=== PATIENT | male | born 1990 | race Caucasian/White ===

== ENCOUNTER 2018-07-30 11:12 | Inpatient (IN) | payer OTHER ==
[~2018-07-30] VITALS: Ht 182.9 cm; Wt 87.1 kg
--- NOTE | 2018-07-30 11:22 | NUR ---
PT AMBULATES TO BED 11
[2018-07-30 11:26] VITALS: BP 129/70
--- NOTE | 2018-07-30 11:30 | NUR ---
PATIENT PRESENTS TO ED WITH C/O HEADACHE AND FAST HEART RATE . PT STATES HE HAS HAD THE HEADACHE FOR 2 DAYS BUT NOTICED TODAY THAT HIS HEART RATE IS FASTER THAN USUAL. PATIENT REPORTS THAT HE HAD A GASTRIC SLEEVE SURGERY A YEAR AGO. PER PATIENT HE HAD A BM TODAY AND IT WAS DARK. PT WAS ADVISED TO COME TO ER TO HAVE HIS BLOOD WORK DONE. DENIES N/V/D; SKIN IS PINK/WARM/DRY; AAOX4 WITH EVEN AND STEADY GAIT; LUNGS CLEAR BL; HR EVEN AND REGULAR; PT DENIES ANY FEVER, CP, SOB, OR COUGH AT THIS TIME; PATIENT STATES PAIN OF 5/10 AT THIS TIME; VSS; PATIENT POSITIONED FOR COMFORT; HOB ELEVATED; BEDRAILS UP X2; BED DOWN. ER MD MADE AWARE OF PT STATUS.
[2018-07-30] MEDS ORDERED: KETOROLAC 30 MG/ML VIAL IVP ONE (11:35)
[2018-07-30] MEDS ORDERED: NACL 0.9% 1,000 ML IV ONE ×2 (11:35→12:10)
--- NOTE | 2018-07-30 11:48 | NUR ---
XRAY AT BEDSIDE
[2018-07-30 12:01] LABS: BASOPHILS % (AUTO) 0.6 % (0.0-2.0); EOSINOPHILS # (AUTO) 0.1 K/uL (0-0.4); EOSINOPHILS % (AUTO) 1.8 % (0.0-4.0); HEMOGLOBIN 7.8 g/dL (12.0-18.0); LYMPHOCYTES # (AUTO) 1.5 K/uL (2.0-11.5); LYMPHOCYTES % (AUTO) 26.8 % (20.5-51.1); MEAN CORPUSCULAR HEMOGLOBIN 30 pg (27-31); MEAN CORPUSCULAR HGB CONC 34 g/dL (33-37); MEAN CORPUSCULAR VOLUME 87.8 fL (80-94); MONOCYTES # (AUTO) 0.4 K/uL (0.8-1.0); NEUTROPHILS # (AUTO) 3.6 K/uL (1.8-7.7); NEUTROPHILS % (AUTO) 63.8 % (42.2-75.2); PLATELET COUNT (AUTO) 178 K/uL (140-450); RED BLOOD CELL COUNT(AUTO) 2.62 MIL/uL (4.20-6.10); RED CELL DISTRIBUTION WIDTH 13.9 % (11.6-13.7); WHITE BLOOD COUNT (AUTO) 5.7 K/uL (4.8-10.8)
[2018-07-30 12:15] LABS: ANION GAP 14.2 (8-16); CARBON DIOXIDE 26.4 mmol/L (21-32); CREATININE 0.9 mg/dL (0.7-1.3); POTASSIUM 3.6 mmol/L (3.5-5.1)
[2018-07-30 12:20] LABS: ALBUMIN 3.2 g/dL (3.4-5.0); PROTHROMBIN TIME 10.2 secs (10.8-13.4); TOTAL BILIRUBIN 0.3 mg/dL (0.0-1.0)
[2018-07-30] MEDS: DEXT 5% /NACL 0.9% 1,000 ML IV SCH (13:27)
[2018-07-30] MEDS ORDERED: ACETAMINOPHEN 325 MG TAB PO PRN (13:30)
[2018-07-30] MEDS ORDERED: ONDANSETRON 4 MG/2 ML VIAL IVP PRN (13:30)
--- NOTE | 2018-07-30 14:16 | NUR ---
PT TAKEN TO [facility] FLOOR BY SURYA SANTOS VIA WHEELCHAIR
--- NOTE | 2018-07-30 14:20 | NUR ---
Patient will be admitted to care of DR MATOS . Admited to [facility]. Will go to room 111A. Belongings list completed. Report to SURYA CANTU.
[2018-07-30 14:30] VITALS: BP 97/52
--- NOTE | 2018-07-30 15:00 | NUR ---
RECEIVED PT FROM ED NURSE TOM. PT IS ALERT AND AWAKE, NO S/S OF ACUTE DISTRESS OR SOB. PT C/O A MIGRAINE HEADACHE. PT NOTED TO BE PALE. NO SKIN ISSUES. PT ON ROOM AIR. VITAL SIGNS ARE: BP 97/52, TEMP 98.8, HR 73, O2 100, RESP 16. IV SITE NOTED ON THE L AC, 20 GAUGE. PATENT AND INTACT. CALL LIGHT PLACED WITHIN REACH. IS AT BEDSIDE. WILL CONTINUE TO MONITOR.
[2018-07-30 15:12] LABS: MAGNESIUM 1.9 mg/dL (1.8-2.4); PHOSPHORUS 3.2 mg/dL (2.5-4.9)
[2018-07-30 15:13] LABS: CHOL/HDL RATIO 2.6 (1-4.5)
[2018-07-30 15:35] LABS: FREE T4 (FREE THYROXINE) 1.09 ng/dL (0.76-1.46)
[2018-07-30 16:00] VITALS: BP 94/55
--- NOTE | 2018-07-30 16:15 | NUR ---
STOOL SAMPLE COLLECTED FOR HEMOCCULT TEST, TAKEN TO LAB.
[2018-07-30 16:52] LABS: THYROID STIMULATING HORMONE 0.71 uIU/mL (0.34-3.74)
--- NOTE | 2018-07-30 17:34 | NUR ---
PT AWAKE AND ALERT, VISITING WITH FAMILY. NO S/S OF DISTRESS NOTED AT THIS TIME. CALL LIGHT WITHIN REACH. WILL CONTINUE TO MONITOR.
[2018-07-30] MEDS ORDERED: APAP/BUTAL/CAFF 325/50/40 MG 1 TAB PO PRN (17:55)
--- NOTE | 2018-07-30 18:20 | NUR ---
MD NOTIFIED OF PT'S SEVERE MIGRAINE HEADACHE, AND THAT TYLENOL DID NOT HELP. MD ORDERED FIORICET FOR PT.
[2018-07-30 19:11] LABS: BASOPHILS % (AUTO) 0.5 % (0.0-2.0); EOSINOPHILS # (AUTO) 0.2 K/uL (0-0.4); EOSINOPHILS % (AUTO) 2.7 % (0.0-4.0); LYMPHOCYTES # (AUTO) 2.2 K/uL (2.0-11.5); MEAN CORPUSCULAR HEMOGLOBIN 30 pg (27-31); MEAN CORPUSCULAR HGB CONC 34 g/dL (33-37); MEAN CORPUSCULAR VOLUME 88.5 fL (80-94); MONOCYTES # (AUTO) 0.3 K/uL (0.8-1.0); MONOCYTES % (AUTO) 5.6 % (1.7-9.3); NEUTROPHILS # (AUTO) 3.1 K/uL (1.8-7.7); NEUTROPHILS % (AUTO) 53.2 % (42.2-75.2); PLATELET COUNT (AUTO) 140 K/uL (140-450); RED BLOOD CELL COUNT(AUTO) 2.14 MIL/uL (4.20-6.10); RED CELL DISTRIBUTION WIDTH 14.5 % (11.6-13.7); WHITE BLOOD COUNT (AUTO) 5.7 K/uL (4.8-10.8)
[2018-07-30 19:18] LABS: HEMOGLOBIN 6.3 g/dL (12.0-18.0)
--- NOTE | 2018-07-30 19:25 | NUR ---
RECEIVED REPORT AT BEDSIDE FROM CAREN LONDON DAYSHIFT NURSE FOR CONTINUITY OF CARE, PT IN STABLE CONDITION. DURING REPORT LAB CALLED TO REPORT A CRITICAL H&H. HB IS 6.3 AND HEMATOCRIT IS 19. RESIDENT DR. BHATTI MADE AWARE, AND ORDERED A BLOOD TRANSFUSION.
[2018-07-30] MEDS ORDERED: FUROSEMIDE 20 MG TAB PO SCH (19:30)
--- NOTE | 2018-07-30 19:30 | NUR ---
PT ENDORSED TO DITTO MACHINE OPERATOR IN STABLE CONDITION.
--- NOTE | 2018-07-30 19:45 | NUR ---
LAB CALLED TO REPORT A CRITICAL LOW H&H. (6.3 HEMOGLOBIN AND HCT LAT 19). SPOKE WITH RESIDENT MD DR. BHATTI AND BLOOD TRANSFUSION TO BE ORDERED FOR PT.
[2018-07-30 20:00] VITALS: BP 110/41
[2018-07-30] MEDS: ACETAMINOPHEN 325 MG TAB PO SCH ×2 (20:00→23:41)
--- NOTE | 2018-07-30 20:00 | NUR ---
PT IN BED AOX 4 IN LOW BED WITH SIDE RAILS UP X2. PT C/O THAT HE STILL HAS BURRELL 01/14 HOWEVER, FLORECET MIGRAINE MEDICATION ORDERED FOR PT IS NOT AVAILABLE AT THIS TIME. PT MADE AWARE. V/S T 98.7 P 71 R 18 B/P 110/41 02 100 % ON R/A. RESIDENT MD ORDERED TYLENOL 650MG AND BENADRYL TO BE GIVEN BEFORE TRANSFUSION.
[2018-07-30] MEDS: DOCUSATE SODIUM 100 MG GELCAP PO SCH (21:30)
--- NOTE | 2018-07-30 21:30 | NUR ---
PT GIVEN SCHEDULED TYLENOL AND BENADRYL WELL COLACE. PT SIGNED CONSENT FOR BLOOD TRANSFUSION.
--- NOTE | 2018-07-30 22:05 | NUR ---
1 UNIT OF RED BLOOD CELLS O POSITIVE WAS PICKED UP FROM BLOOD BANK AND VERIFIED FOR TRANSFUSION. PRETRANSFUSION V/S FOLLOWS: T 98.6 P 73 R 18 B/P 96/52 02 99% ON R/A.
--- NOTE | 2018-07-30 22:20 | NUR ---
1ST SET OF V/S DURING TRANSFUSION ARE FOLLOWS T 99.0 P 68 R 18 B/P 99/47 02 99% ON R/A. PT SAID THAT HE IS FELLING OK NO S/S OF REACTION NOTED.
--- NOTE | 2018-07-30 23:12 | NUR ---
PT IN BED RESTING WITH EYES CLOSED BUT AROUSABLE TO NAME. NO S/S OF ADVERSE REACTION NOTED V/S FOLLOWS T 98.7 P 77 R 18 B/P 108/53 02 97% ON R/A.
--- NOTE | 2018-07-30 23:44 | NUR ---
PT IN BED RESTING NO S/S OF REACTION NOTED V/S FOLLOWS T 98.5 P 68 R 18 B/P 106/53 02 98%. PT GIVEN SCHEDULED TYLENOL AND BENADRYL. WILL CONTINUE TO MONITOR PT FOR REACTION TO BLOOD TRANSFUSION.
[2018-07-31] VITALS: BP 100/52
--- NOTE | 2018-07-31 00:10 | NUR ---
TRANSFUSION CONTINUES PT IN BED RESTING NO S/S OF REACTION NOTED. V/S FOLLOWS; T 99.0 P 72 R 18 B/P 93/51 02 99%.
--- NOTE | 2018-07-31 00:14 | NUR ---
BLOOD TRANSFUSION CONTINUES LATEST V/S FOLLOWS T 99.0 P 72 R 18 B/P 93/51 02 99% ON R/A. PT RESTING IN BED, HE SAID THAT HIS HEADACHE IS FELLING A LITTLE BETTER 4-5/10 PAIN.
--- NOTE | 2018-07-31 01:10 | NUR ---
BLOOD TRANSFUSION COMPLETED LAST V/S FOLLOWS T 99.0 P 67 R 18 B/P 100/52 02 99% WITH R/A. PT TOLERATED PROCEDURE WELL. PT GIVEN LASIX ORDERED POST TRANSFUSION.
--- NOTE | 2018-07-31 01:37 | NUR ---
SPOKE TO MAGY MAGAÑA REGARDING HOLDING LASIX ORDER DUE TO PT LOW B/P (100/20). LASIX HELD DUE TO PT LOW B/P.
[2018-07-31] MEDS: DEXT 5% /NACL 0.9% 1,000 ML IV SCH (01:57)
--- NOTE | 2018-07-31 03:00 | NUR ---
BLOOD DRAW AT BESIDE FOR CBC. RACHEL ON DUTY, CEDRICK SAID THE MACHINES TO MEASURE CBC DO A SELF CLEANING AT THIS TIME SO RESULT WON'T BE IN UNTIL 4AM OR SO.
[2018-07-31 03:21] LABS: BASOPHILS % (AUTO) 0.5 % (0.0-2.0); EOSINOPHILS # (AUTO) 0.2 K/uL (0-0.4); HEMATOCRIT 22.9 % (36-52); HEMOGLOBIN 7.6 g/dL (12.0-18.0); LYMPHOCYTES # (AUTO) 2.8 K/uL (2.0-11.5); MEAN CORPUSCULAR VOLUME 88.5 fL (80-94); NEUTROPHILS # (AUTO) 3.4 K/uL (1.8-7.7)
--- NOTE | 2018-07-31 03:30 | NUR ---
URINE COLLECTED AND SENT TO LAB.
[2018-07-31 03:39] LABS: EOSINOPHILS % (AUTO) 2.8 % (0.0-4.0); LYMPHOCYTES % (AUTO) 40.5 % (20.5-51.1); MEAN CORPUSCULAR HEMOGLOBIN 29 pg (27-31); MEAN CORPUSCULAR HGB CONC 33 g/dL (33-37); MONOCYTES # (AUTO) 0.5 K/uL (0.8-1.0); NEUTROPHILS % (AUTO) 49.2 % (42.2-75.2); PLATELET COUNT (AUTO) 169 K/uL (140-450); RED BLOOD CELL COUNT(AUTO) 2.58 MIL/uL (4.20-6.10); RED CELL DISTRIBUTION WIDTH 14.2 % (11.6-13.7); WHITE BLOOD COUNT (AUTO) 6.9 K/uL (4.8-10.8)
[2018-07-31] MEDS: HYDROcodone/APAP 7.5/325 MG 1 TAB PO PRN ×4 (03:51→19:20)
--- NOTE | 2018-07-31 03:59 | NUR ---
PT C/O 6/10 PAIN IN HEAD., PT GIVEN NORCO PO/PRN. V/S FOLLOWS T 98.6 P 68 R 18 B/P 101/50 02 98%. WILL MONITOR FOR EFFECTIVENESS.
[2018-07-31 04:00] VITALS: BP 101/50
--- NOTE | 2018-07-31 05:46 | NUR ---
PT SLEEPING SOUNDLY NO S/S OF PAIN OR DISTRESS NOTED. BED LOW AND JARVIS CHANEL IN REACH. D5NS RUNNING AT 80MLS/HR ORDERED.
[2018-07-31 06:00] LABS: BASOPHILS % (AUTO) 0.6 % (0.0-2.0); EOSINOPHILS # (AUTO) 0.1 K/uL (0-0.4); EOSINOPHILS % (AUTO) 2.8 % (0.0-4.0); HEMATOCRIT 21.7 % (36-52); HEMOGLOBIN 7.2 g/dL (12.0-18.0); LYMPHOCYTES # (AUTO) 1.8 K/uL (2.0-11.5); LYMPHOCYTES % (AUTO) 37.1 % (20.5-51.1); MEAN CORPUSCULAR HEMOGLOBIN 29 pg (27-31); MEAN CORPUSCULAR HGB CONC 33 g/dL (33-37); MEAN CORPUSCULAR VOLUME 88.5 fL (80-94); MONOCYTES # (AUTO) 0.4 K/uL (0.8-1.0); MONOCYTES % (AUTO) 7.3 % (1.7-9.3); NEUTROPHILS # (AUTO) 2.6 K/uL (1.8-7.7); NEUTROPHILS % (AUTO) 52.2 % (42.2-75.2); PLATELET COUNT (AUTO) 144 K/uL (140-450); RED BLOOD CELL COUNT(AUTO) 2.45 MIL/uL (4.20-6.10); RED CELL DISTRIBUTION WIDTH 14.3 % (11.6-13.7)
[2018-07-31 06:21] LABS: BARBITURATE, URINE NEG. ng/ml (NEG <=200); BENZODIAZEPINE, URINE NEG. ng/mL (NEG <=200); CANNABINOID, URINE NEG. ng/mL (NEG <=50); COCAINE, URINE NEG. ng/mL (NEG <=300); OPIATE, URINE NEG. ng/mL (NEG <=2000); PHENCYCLIDINE SCREEN,URINE NEG. ng/mL (NEG <=25)
[2018-07-31 06:31] LABS: APPEARANCE,URINE CLEAR (CLEAR); BILIRUBIN,URINE NEGATIVE (NEGATIVE); BLOOD, URINE NEGATIVE (NEGATIVE); COLOR,URINE YELLOW (YELLOW); LEUKOCYTE ESTERASE ,URINE NEGATIVE (NEGATIVE); NITRITE, URINE NEGATIVE (NEGATIVE); UGLUCOSE NEGATIVE (NEGATIVE)
[2018-07-31 06:37] LABS: CARBON DIOXIDE 29.4 mmol/L (21-32); CREATININE 0.8 mg/dL (0.7-1.3); POTASSIUM 4.4 mmol/L (3.5-5.1)
[2018-07-31 06:38] LABS: PHOSPHORUS 4.5 mg/dL (2.5-4.9)
--- NOTE | 2018-07-31 06:40 | NUR ---
PATIENT HAS BEEN SCREENED AND CATEGORIZED MODERATE NUTRITION RISK. PATIENT WILL BE SEEN WITHIN 3-5 DAYS OF ADMISSION. 08/02/18-08/04/18 LASHANDA DOMINGUEZ MS, RDN
--- NOTE | 2018-07-31 07:21 | NUR ---
ENDORSED PLAN OF CARE AT BEDSIDE TO CIARRA RN DAYSHIFT NURSE, PT IN STABLE CONDITION.
--- NOTE | 2018-07-31 07:22 | NUR ---
RECEIVED REPORT FROM PM NURSE AT BEDSIDE. PT LYING ON HIS BED. IS NPO FOR POSSIBLE GI PROCEDURE FOR PT. PT HAS IV ACCESS, 20 G, DEXTROSE 5% INFUSING AT 80 ML/HR. CALL LIGHT WITHIN PT REACH. INFORMED HIM TO USE CALL LIGHT FOR ANY HELP. VERBALIZED UNDERSTANDING. WILL CONTINUE TO MONITOR PT.
[2018-07-31] MEDS ORDERED: OCTREOTIDE ACETATE 1.25 MG in NACL 0.9% 250 ML IV SCH (07:50)
[2018-07-31 08:00] VITALS: BP 98/51
[2018-07-31] MEDS: DOCUSATE SODIUM 100 MG GELCAP PO SCH ×2 (09:24→20:10)
--- NOTE | 2018-07-31 10:48 | NUR ---
CHECKED ON PT. FAMILY MEMBER AT BEDSIDE. ASKING IF PT CAN BE TRANSFERRED TO DIFFERENT HOSPITAL FOR EGD PROCEDURE. INFORMED PT AND FAMILY THAT WILL INFORM MD . INFORMED, WILL TALK TO PT.
--- NOTE | 2018-07-31 10:54 | NUR ---
INFORMED PT NOT EAT OR DRINK ANYTHING PT WILL HAVE THE PROCEDURE TODAY. VERBALIZED UNDERSTANDING. WILL CONTINUE TO MONITOR PT.
[2018-07-31] MEDS ORDERED: NACL 0.9% 1,000 ML IV SCH (11:00)
[2018-07-31] MEDS ORDERED: PANTOPRAZOLE 40 MG INJ VIAL IVP SCH ×2 (11:07→12:40)
--- NOTE | 2018-07-31 11:30 | NUR ---
PT OFF THE UNIT FOR EGD PROCEDURE WITH OR NURSE. PT STABLE. NO SIGN OF DISTRESS NOTED.
[2018-07-31] MEDS ORDERED: MIDAZOLAM 2 MG/2 ML VIAL ONE (11:33)
[2018-07-31] MEDS ORDERED: fentaNYL 0.05 MG/ML VIAL ONE (11:33)
[2018-07-31] MEDS ORDERED: diphenhydrAMINE 50 MG/ML VIAL ONE (11:33)
[2018-07-31] MEDS ORDERED: SODIUM FERRIC GLUCONATE 125 MG in NACL 0.9% 100 ML IV SCH ×3 (12:00→21:00)
--- NOTE | 2018-07-31 12:17 | NUR ---
PT BACK FROM OR TO HIS ROOM. IS POST OP FINDINGS PER OR NURSE IS ERROSIVE ESOPHAGUS, BIOPSY OF H.PYLORI DONE. PT MIGHT GET COLONOSCOPY TOMORROW. PT IS UNDER ANESTHESIA, WAS AWAKE FOR A WHILE, TALKED A BIT AND WENT BACK TO SLEEP. PT O2 SAT 98% ON RA, HR 77, BP 97/50. NO SIGN OF DISTRESS NOTED. WILL CONTINUE TO MONITOR PT.
[2018-07-31] MEDS: METOCLOPRAMIDE 10 MG/2 ML INJ VIAL IVP SCH ×2 (13:00→17:19)
--- NOTE | 2018-07-31 13:35 | NUR ---
CHECKED ON PT. ADMINISTERED FERRLECIT TO PT ORDERED. PT STATES BEING DROWSY STILL. FAMILY AT BEDSIDE. DR FRANCO TALKING TO PT. NO SIGN OF DISTRESS NOTED. WILL CONTINUE TO MONITOR PT.
[2018-07-31 13:59] LABS: BASOPHILS % (AUTO) 0.6 % (0.0-2.0); EOSINOPHILS # (AUTO) 0.1 K/uL (0-0.4); EOSINOPHILS % (AUTO) 2.8 % (0.0-4.0); HEMATOCRIT 21.7 % (36-52); HEMOGLOBIN 7.2 g/dL (12.0-18.0); LYMPHOCYTES % (AUTO) 43.4 % (20.5-51.1); MEAN CORPUSCULAR HEMOGLOBIN 30 pg (27-31); MEAN CORPUSCULAR HGB CONC 33 g/dL (33-37); MEAN CORPUSCULAR VOLUME 89.1 fL (80-94); MONOCYTES # (AUTO) 0.4 K/uL (0.8-1.0); MONOCYTES % (AUTO) 7.7 % (1.7-9.3); NEUTROPHILS # (AUTO) 2.1 K/uL (1.8-7.7); NEUTROPHILS % (AUTO) 45.5 % (42.2-75.2); PLATELET COUNT (AUTO) 143 K/uL (140-450); RED BLOOD CELL COUNT(AUTO) 2.44 MIL/uL (4.20-6.10); RED CELL DISTRIBUTION WIDTH 14.6 % (11.6-13.7); WHITE BLOOD COUNT (AUTO) 4.6 K/uL (4.8-10.8)
[2018-07-31 16:00] VITALS: BP 104/59
[2018-07-31] MEDS ORDERED: CYCLOBENZAPRINE 10 MG TAB PO PRN (16:00)
--- NOTE | 2018-07-31 17:22 | NUR ---
ADMINISTERED MEDS TO PT ORDERED. TOLERATED WELL. NO SIGN OF DISTRESS NOTED. CALL LIGHT WITHIN PT REACH. WILL CONTINUE TO MONITOR PT.
--- NOTE | 2018-07-31 18:40 | NUR ---
CHECKED ON PT. WAS SLEEPUING ON HIS BED. NO SIGN OF DISTRESS. NO BURRELL THIS TIME. WILL CONTINUE TO MONITOR PT.
--- NOTE | 2018-07-31 19:10 | NUR ---
ENDORSED PT TO PM NURSE . PT STABLE , SITTING ON HIS BED.
--- NOTE | 2018-07-31 19:11 | NUR ---
REPORT RECEIVED FROM AM NURSE AT BEDSIDE. PT IN STABLE CONDITION. AAOX4. INTRODUCED SELF TO PT. BOARD UPDATED. WILL MEDICATE FOR 01/14 HEADACHE. NO SOB. AFEBRILE. IV SITE L AC 20G SL PATENT AND INTACT. SKIN WARM, DRY, AND INTACT WITH NO OPEN WOUNDS. BED LOCKED IN LOW POSITION. CALL CHANEL WITHIN REACH. SAFETY PRECAUTIONS IN PLACE. ALL NEEDS MET AT THIS TIME.
--- NOTE | 2018-07-31 19:20 | NUR ---
NORCO GIVEN FOR 6/10 HEADACHE. PT TOLERATED WELL.
[2018-07-31] MEDS: SODIUM FERRIC GLUCONATE 125 MG in NACL 0.9% 100 ML IV SCH (20:10)
[2018-07-31] MEDS: PANTOPRAZOLE 40 MG INJ VIAL IVP SCH (20:10)
--- NOTE | 2018-07-31 20:10 | NUR ---
FERRLICIT HUNG AND RUNNING. COLACE GIVEN PO. PROTONIX GIVEN IVP. PT TOLERATED WELL.
--- NOTE | 2018-07-31 20:25 | NUR ---
ZOSYN HUNG AND RUNNING. TRAZODONE, ELIQUIS, REMERON, SIMVASTATIN, AND ZYPREXA GIVEN PO. PT TOLERATED WELL. BS 104. LANTUS 8 UNITS GIVEN SUBQ.
--- NOTE | 2018-07-31 22:30 | NUR ---
PT AWAKE AND ALERT PLAYING ON HIS PHONE. NO S/S OF DISTRESS NOTED. WILL CONTINUE TO MONITOR.
[2018-08-01] VITALS: BP 107/39
--- NOTE | 2018-08-01 00:30 | NUR ---
PT SLEEPING COMFORTABLY IN BED. NO S/S OF DISTRESS NOTED. RESPIRATIONS EVEN, UNLABORED, AND WNL. WILL CONTINUE TO MONITOR.
--- NOTE | 2018-08-01 02:30 | NUR ---
PT SLEEPING COMFORTABLY BUT AROUSEABLE. NO S/S OF DISTRESS NOTED. ALL NEEDS MET AT THIS TIME.
--- NOTE | 2018-08-01 04:30 | NUR ---
PT SLEEPING COMFORTABLY IN BED BUT AROUSEABLE. NO COMPLAINTS OF PAIN. NO SOB. AFEBRILE. NO S/S OF DISTRESS NOTED.
[2018-08-01 06:12] LABS: BASOPHILS % (AUTO) 0.5 % (0.0-2.0); EOSINOPHILS # (AUTO) 0.1 K/uL (0-0.4); EOSINOPHILS % (AUTO) 2.3 % (0.0-4.0); HEMATOCRIT 21.7 % (36-52); HEMOGLOBIN 7.3 g/dL (12.0-18.0); LYMPHOCYTES # (AUTO) 1.6 K/uL (2.0-11.5); LYMPHOCYTES % (AUTO) 33.3 % (20.5-51.1); MEAN CORPUSCULAR HEMOGLOBIN 30 pg (27-31); MEAN CORPUSCULAR HGB CONC 34 g/dL (33-37); MEAN CORPUSCULAR VOLUME 88.4 fL (80-94); MONOCYTES # (AUTO) 0.4 K/uL (0.8-1.0); MONOCYTES % (AUTO) 7.4 % (1.7-9.3); NEUTROPHILS # (AUTO) 2.7 K/uL (1.8-7.7); NEUTROPHILS % (AUTO) 56.5 % (42.2-75.2); PLATELET COUNT (AUTO) 163 K/uL (140-450); RED BLOOD CELL COUNT(AUTO) 2.46 MIL/uL (4.20-6.10); RED CELL DISTRIBUTION WIDTH 14.4 % (11.6-13.7); WHITE BLOOD COUNT (AUTO) 4.7 K/uL (4.8-10.8)
[2018-08-01 07:10] LABS: ANION GAP 8.5 (8-16); CARBON DIOXIDE 29.2 mmol/L (21-32); CREATININE 0.8 mg/dL (0.7-1.3); POTASSIUM 3.7 mmol/L (3.5-5.1)
--- NOTE | 2018-08-01 07:10 | NUR ---
REPORT GIVEN TO AM NURSE AT BEDSIDE. PT IN STABLE CONDITION.
[2018-08-01 07:15] LABS: MAGNESIUM 1.8 mg/dL (1.8-2.4); PHOSPHORUS 4.7 mg/dL (2.5-4.9)
[2018-08-01 08:00] VITALS: BP 108/59
[2018-08-01] MEDS: PANTOPRAZOLE 40 MG INJ VIAL IVP SCH (08:25)
[2018-08-01] MEDS: METOCLOPRAMIDE 10 MG/2 ML INJ VIAL IVP SCH (08:26)
[2018-08-01] MEDS: DOCUSATE SODIUM 100 MG GELCAP PO SCH (08:26)
--- NOTE | 2018-08-01 08:47 | NUR ---
DUE TO RECEIVING A FNS CONSULT, PATIENT HAS BEEN CATEGORIZED HIGH RISK. PATIENT WILL BE SEEN WITHIN 1-2 DAYS FROM RECEIVING CONSULTATION. 08/01/18- 08/02/[address]
[2018-08-01] MEDS ORDERED: PANTOPRAZOLE 40 MG INJ VIAL IVP SCH (09:00)
--- NOTE | 2018-08-01 09:00 | NUR ---
ADMINISTERED MEDS TO PT ORDERED. PT UP , SITTING ON HIS BED. STATES HAVING PAIN OF HEAD DUE TO MIGRAINE. ADMINISTERED MEDS ORDERED. NO SIGN OF DISTRESS NOTED. ALL SAFETY MEASURE IN PLACE. WILL CONTINUE TO MONITOR PT.
[2018-08-01] MEDS ORDERED: APAP/BUTAL/CAFF 325/50/40 MG 1 TAB PO PRN (09:15)
[2018-08-01] MEDS ORDERED: PANT40EC PO (09:17)
[2018-08-01] MEDS ORDERED: DSS/1TAB3 PO (09:17)
[2018-08-01] MEDS: SODIUM FERRIC GLUCONATE 125 MG in NACL 0.9% 100 ML IV SCH (09:39)
[2018-08-01] MEDS ORDERED: ACET-9234 PO (10:22)
--- NOTE | 2018-08-01 12:30 | NUR ---
PT WENT HOME WITH FAMILY. DISCHARGE INSTRUCTION PROVIDED, PRESCRIPTION AND THE NOTE FOR LEAVE PROVIDED [place] . PT INFORMED TO FOLLOW UP WITH PCP ON THE SCHEDULED DATE BY MD. VERBALIZED UNDERSTANDING. REFUSED UNDERSTANDING OF TEACHING. NO SIGN OF DISTRESS NOTED. PT STABLE AND WALKED TO LOBBY WITH FAMILY MEMBER.
[2018-08-01 12:33] LABS: FOLIC ACID 10.3 ng/mL (>3.0)
== END 2018-08-01 12:30 | disposition home or self-care (01) | DRG 379 ==
LOC: MED 11:12 → MTU 13:30
PROVIDERS: ADMIT General Practice; ATTEND General Practice
PROC: 30233N1 Transfusion of Nonautologous Red Blood Cells into Peripheral Vein, Percutaneous Approach (ICD-10-PCS; principal; 2018-07-30)
PROC: 0DJ08ZZ Inspection of Upper Intestinal Tract, Via Natural or Artificial Opening Endoscopic (ICD-10-PCS; 2018-07-31)
DX: K29.01 Acute gastritis with bleeding (principal); G43.909 Migraine, unspecified, not intractable, without status migrainosus; E78.5 Hyperlipidemia, unspecified; K44.9 Diaphragmatic hernia without obstruction or gangrene; D64.9 Anemia, unspecified; Z98.84 Bariatric surgery status; Z98.52 Vasectomy status; Z82.49 Family history of ischemic heart disease and other diseases of the circulatory system
CPT/HCPCS: 36415; 71045; 80048; 80053; 80305; 81003; 82150; 82272; 82607; 82728; 82746; 83036; 83540; 83690; 83735; 83880; 84100; 84439; 84443; 84484; 85025; 85045; 85610; 85730; 86677; 86886; 86900; 86901; 86920; 87081; 93005; 96361; 96374; 99285; C9113; J1200; J1885; J2250; J2354; J2765; J2916; J3010; J7030; J7042; P9016; Q0163